=== PATIENT | male | born 1950 | race Caucasian/White ===

== ENCOUNTER 2024-12-04 16:47 | Observation (INO) | payer MEDICARE, OTHER, SELFPAY ==
[2024-12-04] VITALS (9 sets, daily range): BP systolic 149–199; BP diastolic 79–101; PULSE 63–72; RESP 14–18; TEMP 36.7–36.9; O2SAT 96–100; BMI 38.3; BMI 38.5; BMI 36.6
--- NOTE | 2024-12-04 17:11 | EX.ED.DYSGE1 ---
HPI History of Present Illness Chief Complaint: Neuro [facility] Medical History (Updated 12/04/24 @ 19:[address] Saran Bennett MD) GERD (gastroesophageal reflux disease) Non-smoker CPAP (continuous positive airway pressure) dependence Sleep apnea Prostate cancer Hypertension after donor nephrectomy requiring medication Home Medications ?Medication ?Instructions ?Recorded ?Last Taken ?Type losartan 100 mg tablet 100 mg PO DAILY blood pressure 12/04/24 12/04/24 History Allergy/AdvReac Type Severity Reaction Status Date / Time adhesive Allergy Mild Hives Verified 12/04/24 16:55 Surgical History (Updated 12/04/24 @ 19:35 by Michelle Aguilar) History of cholecystectomy H/O prostatectomy H/O shoulder surgery Social History Smoking Status: Never smoker EXAM Physical Exam Const Vital Signs: 12/04/24 16:48 12/04/24 17:48 12/04/24 18:00 Temperature 98.4 F Temperature Source Oral Pulse Rate 72 63 72 Respiratory Rate 15 14 17 Blood Pressure 184/91 H 199/89 H 192/97 H Blood Pressure Mean 122 125 128 Pulse Ox 98 97 97 Oxygen Delivery Method Room Air Room Air 12/04/24 19:00 12/04/24 19:19 Temperature 98.1 F Temperature Source Pulse Rate 63 63 Respiratory Rate 18 18 Blood Pressure 149/79 H 149/79 H Blood Pressure Mean 102 102 Pulse Ox 96 96 Oxygen Delivery Method Room Air MDM MDM MDM Narrative Medical decision making narrative: HISTORY OF PRESENT ILLNESS: 74-year-old male presents concern for slurred speech and right arm weakness. He notes this occurred at ~415pm on 12/04/2023. Last known well 415pm. He notes by the time he called EMS and they arrived at his home he was back to normal. He denies any symptoms now. He does note he got an accident on Wednesday and notes head trauma. Also complains of a headache. He further states REVIEW OF SYSTEMS: Pertinent positives: Slurred speech, right arm weakness, headache Pertinent negatives: Vomit PHYSICAL EXAM: Nursing triage notes reviewed, Vital signs reviewed Constitutional: please see mdm HENT: MMM Eyes: Pupils equal round and reactive to light, Extraocular muscles intact Neck: No stridor, no JVD, full neck ROM Lungs: Clear to auscultation, No wheezing or rales. No increased work of breathing, no conversational dyspnea, no accessory muscle use, no nasal flaring. No respiratory distress noted Heart: Regular rate and rhythm, No murmurs, No rubs and No gallops, 2+ distal pulses (radial, femoral, posterior tibial) in all extremities Abdomen: Soft, there is no tenderness, rigidity, rebound or guarding, no obvious peritoneal signs, no palpable pulsatile abdominal masses, no auscultated abdominal bruit : No CVAT Extremities: No edema Neuro: No new focal neurological deficits, neuroexam at baseline. Alert and orient x 3. Cranial nerves II through XII intact, 5/5 strength in all present extremities. Intact sensation to light touch in all present extremities, 2+ reflexes bilateral patella tendons. NIH of 0. Skin: No rash or lesions noted MEDICAL DECISION MAKING: Chief Complaint: Transient right arm weakness, slurred speech External records reviewed: Reviewed prior imaging studies Factors affecting care: elevated blood pressure Social determinants of health: none History obtained from others: none Consults: internal medicine MDM Narrative: The patient was initially hypertensive with blood pressure 184/91, otherwise afebrile and nontoxic-appearing. Initial neurologic exam [closed I considered the following differential diagnosis: Traumatic brain spontaneous ICH, mass, large vessel occlusion, CVA/TIA I obtained a broad lab and imaging workup to further elucidate the etiology of the patient's complaints ALL IMAGES (IF OBTAINED) HAVE BEEN PERSONALLY REVIEWED AND INTERPRETED BY MYSELF. CT scan of the head showed no evidence of intracranial hemorrhage, mass, CTA of the head neck showed carotid artery stenosis hemodynamically significant stenosis. Showed no evidence of large vessel occlusion. I have personally reviewed the patient's chest x-ray. Chest x-ray is unremarkable for pulmonary edema, pneumothorax, pneumonia or focal cardiopulmonary abnormality. High-sensitivity troponin is negative, no evidence of myocardial ischemia EKG with normal sinus rhythm, normal axis, normal intervals, no STEMI BMP without evidence of significant electrolyte abnormalities, no anion gap, no acute kidney injury. Given concern for TIA will admit for MRI. Discussed with hospitalist The patient and/or family, caregivers express understanding. The patient and/or family, caregivers agrees with the plan. Shared decision making: I will have a discussion with the patient and or visitors regarding risk/benefits of further testing or admission. They will be made aware of of the risk/benefits inherent in this decision they will be given the opportunity to voice understanding. Total critical care time today provided was at least 0 minutes. This excludes separately billable procedures. Critical care time (if documented) is secondary to the patient having high probability of clinically significant/life threatening deterioration in the patient's condition which required my urgent intervention. Impression: 1. TIA 2. History of hypertension 3. Elevated blood pressure Dispo: Admit This note was generated with [employer] dictation software. It may contain incorrect words, spelling, and punctuation that were not noted in review of the chart prior to signing. Lab Data Labs: Laboratory Results - last 24 hr 12/04/24 16:50 WBC 8.2 RBC 4.81 Hgb 14.6 Hct 41.8 MCV 86.9 MCH 30.4 MCHC 34.9 RDW Std Deviation 40.6 RDW Coeff of Zana 12.9 Plt Count 240 MPV 9.8 Immature Gran % (Auto) 0.400 Neut % (Auto) 60.8 Lymph % (Auto) 28.7 Luna % (Auto) 7.8 Eos % (Auto) 1.8 Baso % (Auto) 0.5 Absolute Neuts (auto) 5.0 Absolute Lymphs (auto) 2.36 Nucleated RBC % 0 PT 14.0 INR 1.1 Sodium 139 Potassium 4.1 Chloride 108 H Carbon Dioxide 24.0 Anion Gap 7 BUN 24 H Creatinine 1.12 Estim Creat Clear Calc 63.66 Est GFR (MDRD) Af Amer 82 Est GFR (MDRD) Non-Af 68 BUN/Creatinine Ratio 21.4 H Glucose 99 Calcium 9.0 Troponin I High Sens 17 Radiography Diagnostic Testing: Clinical Impression(s) from Imaging Studies Brain CT 12/04/24 17:39 IMPRESSION: Mild atrophy and periventricular white matter ischemic changes. No acute bleed.. If concern for acute infarct MRI recommended Electronically Signed: Jaspal Ferguson MD at 18:40 EST , Head/Neck CTA 12/04/24 17:39 IMPRESSION: Atherosclerotic changes of the brain without evidence for hemodynamically significant stenosis Moderate to severe atherosclerotic disease of the neck with hemodynamically significant stenosis of the left carotid bulb and origin of the right internal carotid Catheter angiography would be helpful for further evaluation and possibly therapeutic purposes clinically warranted Electronically Signed: Jaspal Ferguson MD at 18:50 EST Reading Location ID and State: [address] [place] [address] Tel [phone], Service support , Chest X-Ray 12/04/24 17:40 IMPRESSION: No acute cardiopulmonary pathology Electronically Signed: Jaspal Ferguson MD at 18:06 EST , Discharge Plan Disposition Disposition: Acute Care Hospital [facility] Discharge Date/Time: 12/04/24 20:11
--- NOTE | 2024-12-04 17:39 | EKG12_ITS ---
Test Reason : NEURO/SX Blood Pressure : */* mmHG Vent. Rate : 62 BPM Atrial Rate : 62 BPM P-R Int : 168 ms QRS Dur : 98 ms QT Int : 416 ms P-R-T Axes : 4 -1 27 degrees QTcB Int : 422 ms Normal sinus rhythm Incomplete right bundle branch block Minimal voltage criteria for LVH, may be normal variant ( R in aVL ) Borderline ECG Confirmed by WILTON MESA, ANGEL ([id number]), publication editor KINGSTON PETERS ([id number]) on 12/11/2024 2:24:35 PM Referred By: Confirmed By: ANGEL NÚÑEZ MD
--- NOTE | 2024-12-04 17:39 | CT_ITS ---
STUDY: CT BRAIN WITHOUT CONTRAST REASON FOR EXAM: Male, 74 years old. right arm weakness RADIATION DOSAGE (If Supplied By Facility): CTDIvol = ( 44.99 ) mGy, DLP = ( 829.85 ) mGycm TECHNIQUE: Transaxial CT imaging of the brain was performed without administration of intravenous contrast material. Individualized dose optimization techniques were used for this CT. COMPARISON: No relevant priors. FINDINGS: Normal soft tissue structures. Normal calvarium. Calcific plaquing of the cavernous carotids and vertebral arteries Mild atrophy and periventricular white matter ischemic changes. Normal basal ganglia and thalami. Normal brainstem. Normal cerebellum. There is no intracranial hemorrhage. There are no findings of an acute ischemic infarction. Normal visualized paranasal sinuses. CT/Brain/Head without Contrast IMPRESSION: Mild atrophy and periventricular white matter ischemic changes. No acute bleed.. If concern for acute infarct MRI recommended Electronically Signed: Jaspal Ferguson MD at 18:40 EST ,
--- NOTE | 2024-12-04 17:39 | CT_ITS ---
STUDY: CTA HEAD AND NECK WITH CONTRAST REASON FOR EXAM: Male, 74 years old. right arm weakness RADIATION DOSAGE (If Supplied By Facility): CTDIvol = ( 23.77 ) mGy, DLP = ( 709.25 ) mGycm TECHNIQUE: CT angiography was performed with a multi-detector CT scanner. Data acquisition was obtained from the skull base through the vertex following intravenous administration of IV 100mL [id number]-300. MIP images were reconstructed from the axial data set. Post-processing of the angiographic images was performed, with multiplanar reformation and 3D reconstruction. Individualized dose optimization techniques were used for this CT. COMPARISON: No relevant priors. FINDINGS: Normal bilateral petrous carotid arteries. Calcific plaquing of the right cavernous carotid artery with a normal supraclinoid bifurcation. Calcific plaquing of the left cavernous carotid artery with a normal supraclinoid bifurcation. Normal right A1 segments of the anterior cerebral artery. Normal left A1 segments of the anterior cerebral artery. Normal intact anterior communicating artery (ACOM). Normal bilateral A2 segments of the anterior cerebral arteries. Normal right M1 and M2 segments of the middle cerebral arteries, with a normal M1 bifurcation. Normal left M1 and M2 segments of the middle cerebral arteries, with a normal M1 bifurcation. Right posterior communicating artery not visualized consistent with normal variant). Normal left posterior communicating artery (PCOM). Narrowed calcified distal left vertebral. Right vertebral terminating in PICA. Normal basilar artery with a normal basilar bifurcation. The visualized bilateral superior cerebellar (SCA) arteries are normal. Normal bilateral P1, P2 and visualized P3 segments of the posterior cerebral arteries. There is no demonstrated aneurysm of the [place]. AORTIC ARCH: Normal visualized aortic arch. Normal origins of the brachiocephalic, left common carotid, and left subclavian arteries. RIGHT CAROTID ARTERIES: Mild calcific plaquing of the right common carotid artery (CCA). Moderate calcific plaquing of the right common carotid bulb. Severe calcific plaquing of the origin of the right internal carotid (ICA) artery producing hemodynamically significant stenosis. Normal visualized cervical portion of the right internal carotid artery. Normal origin of the right external carotid artery (ECA). LEFT CAROTID ARTERIES: Moderate soft and calcific plaquing of the left common carotid artery (CCA). Severe calcific plaquing of the left common carotid bulb creating hemodynamically significant stenosis. Moderate calcific plaquing of the origin of the left internal carotid (ICA) artery without a hemodynamically significant stenosis. Normal visualized cervical portion of the left internal carotid artery. Normal origin of the left external carotid artery (ECA). 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
--- NOTE | 2024-12-04 17:40 | RAD_ITS ---
STUDY: X-RAY CHEST REASON FOR EXAM: Male, 74 years old. right arm weakness TECHNIQUE: AP portable COMPARISON: None. FINDINGS: There is minimal bibasilar scarring.. There is no demonstrated pleural abnormality. Normal size heart. Normal mediastinum and rivera. Normal visualized pulmonary arteries. Mildly calcified aortic arch and descending thoracic aorta. Dorsal spine demonstrates mild degenerative change. Normal visualized ribs, clavicles, and shoulders. There is no demonstrated abnormality of the visualized soft tissue structures of the upper abdomen. RAD/Chest 1 View (Portable) IMPRESSION: No acute cardiopulmonary pathology Electronically Signed: Jaspal Ferguson MD at 18:06 EST ,
[2024-12-04 17:57] LABS: Absolute Lymphocyte Count 2.36 X10^3/uL (0.83-4.51); Basophil# 0.04 X10^3/uL; Basophil% 0.5 % (0-1); Eosinophil# 0.15 X10^3/uL; Eosinophils% 1.8 % (0-5); Hematocrit 41.8 % (40-54); Hemoglobin 14.6 g/dL (13.0-16.5); Lymphocyte # 2.36 X10^3/ul (0.83-4.51); Lymphocyte % 28.7 % (19-41); Mean Corp Hgb Conc 34.9 g/dL (32-36); Mean Corpuscular Hgb 30.4 pg (27.0-32.0); Mean Corpuscular Volume 86.9 fL (80-94); Mean Platelet Vol. 9.8 fl (6.2-12.0); Monocyte# 0.64 X10^3/uL; Monocyte% 7.8 % (0-10); NRBC Flagged by Analyzer 0 % (0-5); Neutrophil # 4.99 X10^3/uL (2.7-7.7); Neutrophil % 60.8 % (47-70); Platelet Count 240 K/mm3 (150-450); RBC Distribution Width CV 12.9 % (11.6-14.6); RBC Distribution Width SD 40.6 fl (35.1-43.9); Red Blood Count 4.81 M/mm3 (4.6-6.2); White Blood Count 8.2 K/mm3 (4.4-11.0)
[2024-12-04 18:04] LABS: Anion Gap 7 (5-15); BUN 24 mg/dL (7-18); BUN/Creat Ratio 21.4 RATIO (10-20); Chloride 108 mmol/L (98-107); Creatinine, Serum 1.12 mg/dL (0.70-1.30); EST Glomerular Filtration Rate 68 mL/min (>60); Est Glom Filt Rate - Afr Amer 82 mL/min (>60); Estimated Creatinine Clearance 63.66 ml/min; Glucose 99 mg/dL (74-106); Potassium 4.1 mmol/L (3.5-5.1); Sodium Level 139 mmol/L (136-145); Troponin-I HS 17 pg/mL (3.0-78.0)
[2024-12-04 18:07] LABS: International Normalized Ratio 1.1
--- NOTE | 2024-12-04 19:41 | HP.PCM_ITS ---
HPI - General General Date of Admission: 12/04/24 Date of Service: 12/04/24 Chief Complaint: Right arm weakness, slurred speech HPI Narrative AKUA TANG, is a 74 M who presents to the emergency room by squad due to sudden right arm weakness and slurred speech resulting in fall at 415 this afternoon. [facility] and he was indoors when this occurred and was witnessed. By the time ambulance had arrived symptoms had completely resolved. Upon arrival to the emergency room patient's NIH score was 0. Patient denies any chest pain, shortness of breath, fevers or chills, nausea vomiting or diarrhea. He does have some headache presumably from falling. CT scan is negative for acute findings ,however, CT angiogram showed positive vascular disease. Laboratory studies are unremarkable. Patient will be admitted for observation and MRI/MRA in the a.m. [facility] Medical History (Updated 12/04/24 @ 19:[address] Saran Bennett MD) GERD (gastroesophageal reflux disease) Non-smoker CPAP (continuous positive airway pressure) dependence Sleep apnea Prostate cancer Hypertension after donor nephrectomy requiring medication Home Medications ?Medication ?Instructions ?Recorded ?Last Taken ?Type losartan 100 mg tablet 100 mg PO DAILY 12/04/24 Unknown History Allergy/AdvReac Type Severity Reaction Status Date / Time adhesive Allergy Mild Hives Verified 12/04/24 16:55 Surgical History (Updated 12/04/24 @ 19:35 by Michelle Aguilar) History of cholecystectomy H/O prostatectomy H/O shoulder surgery Social History Smoking Status: Never smoker ROS Constitutional Constitutional: Denies chills or fever(s) Eyes Eyes: Denies blurry vision ENT HEENT: Denies abnormal hearing Cardiovascular Cardiovascular: Denies chest pain Respiratory/Chest Respiratory/Chest: Denies cough or shortness of breath at rest Gastrointestinal Gastrointestinal: Denies abdominal pain Genitourinary Genitourinary: Denies dysuria Integumentary Integumentary: Denies dry skin Neurologic Neurologic: Reports abnormal speech and focal weakness Psychiatric Psychiatric: Denies anxiety Endocrine Endocrinology: Denies change in body appearance Vital Signs Vital Signs Vital Signs: 12/04/24 16:48 12/04/24 17:48 12/04/24 18:00 Temperature 98.4 F Temperature Source Oral Pulse Rate 72 63 72 Respiratory Rate 15 14 17 Blood Pressure 184/91 H 199/89 H 192/97 H Blood Pressure Mean 122 125 128 Pulse Ox 98 97 97 Oxygen Delivery Method Room Air Room Air 12/04/24 19:00 12/04/24 19:19 Temperature 98.1 F Temperature Source Pulse Rate 63 63 Respiratory Rate 18 18 Blood Pressure 149/79 H 149/79 H Blood Pressure Mean 102 102 Pulse Ox 96 96 Oxygen Delivery Method Room Air Weight Weight: 231 lb 14.821 oz Body Mass Index (BMI) 38.5 Physical Exam Const alert, oriented x3, no apparent distress and well nourished General Appearance: cooperative and well developed HEENT normocephalic and head/scalp atraumatic Eyes PERRL and EOMs intact bilaterally Neck no lymphadenopathy Lymph Lymphatic: no lymphadenopathy noted Resp normal respiratory effort, normal air movement and clear to auscultation bilaterally Cardio regular rate, regular rhythm, S1 normal heart sound, S2 normal heart sound and no murmurs GI normal to inspection, nondistended, normoactive bowel sounds Extremity normal capillary refill Skin General Skin Exam: no breakdown Neuro CN's II-XII intact bilaterally Coordination / Balance: [id number] test normal and [id number] test normal Speech: speech normal Motor Exam: strength 5/5 throughout Psych thought process normal, cooperative and affect normal Appearance: appropriate Results Lab / Micro Data 12/04/24 16:50 12/04/24 16:50 Labs: Laboratory Results - last 24 hr 12/04/24 16:50: WBC 8.2, RBC 4.81, Hgb 14.6, Hct 41.8, MCV 86.9, MCH 30.4, MCHC 34.9, RDW Std Deviation 40.6, RDW Coeff of Zana 12.9, Plt Count 240, MPV 9.8, Immature Gran % (Auto) 0.400, Neut % (Auto) 60.8, Lymph % (Auto) 28.7, [place] % (Auto) 7.8, Eos % (Auto) 1.8, Baso % (Auto) 0.5, Absolute Neuts (auto) 5.0, Absolute Lymphs (auto) 2.36, Nucleated RBC % 0, PT 14.0, INR 1.1, Sodium 139, Potassium 4.1, Chloride 108 H, Carbon Dioxide 24.0, Anion Gap 7, BUN 24 H, Creatinine 1.12, Estim Creat Clear Calc 63.66, Est GFR (MDRD) Af Amer 82, Est GFR (MDRD) Non-Af 68, BUN/Creatinine Ratio 21.4 H, Glucose 99, Calcium 9.0, Troponin I High Sens 17 Imaging Radiology Impression Brain CT 12/04/24 17:39 IMPRESSION: Mild atrophy and periventricular white matter ischemic changes. No acute bleed.. If concern for acute infarct MRI recommended Electronically Signed: Jaspal Ferguson MD at 18:40 EST , Head/Neck CTA 12/04/24 17:39 IMPRESSION: Atherosclerotic changes of the brain without evidence for hemodynamically significant stenosis Moderate to severe atherosclerotic disease of the neck with hemodynamically significant stenosis of the left carotid bulb and origin of the right internal carotid Catheter angiography would be helpful for further evaluation and possibly therapeutic purposes clinically warranted Electronically Signed: Jaspal Ferguson MD at 18:50 EST , Chest X-Ray 12/04/24 17:40 IMPRESSION: No acute cardiopulmonary pathology Electronically Signed: Jaspal Ferguson MD at 18:06 EST , Assessment & Plan Assessment/Plan (1) TIA (transient ischemic attack): (2) GERD (gastroesophageal reflux disease): (3) Sleep apnea: (4) Hypertension after donor nephrectomy requiring medication: PLAN: Plan 1 transient ischemic attack?patient will be admitted for observation to progressive care unit, neurologic assessments every 4 hours per routine protocol will add aspirin daily and will order an MRI MRA of the brain and neck in a.m. Will also get CBC, CMP and FLP in the morning. 2. GERD continue oral medication 3. Sleep apnea?recommend continued use of CPAP machine 4. Hypertension will continue routine home medications 5. DVT prophylaxis?low molecular weight heparin Charges/Coding Visit Charges OBSV E&M: 69148 Observ/hosp same date L2
[2024-12-05 01:50] VITALS: BP 141/76; PULSE 54; RESP 14; TEMP 36.5; O2SAT 97
[2024-12-05] MEDS: 0.9% Saline Lock 10 ML Syringe IV (01:56)
[2024-12-05 04:04] VITALS: BMI 36.6
--- NOTE | 2024-12-05 05:55 | MRI_ITS ---
HISTORY: Transient ischemic attack, right sided weakness, slurred speech now resolved. TECHNIQUE: Multiplanar and multisequence MR images of the brain were obtained without contrast. 294 images. COMPARISON: CT prior day. FINDINGS: BRAIN PARENCHYMA: Mild foci of increased T2 FLAIR signal in the bilateral cerebral white matter. No abnormal focus of restricted diffusion. No acute intracranial hemorrhage identified. CSF SPACES: Mild volume loss. No significant midline shift or other mass effect.No extra-axial fluid collection. VASCULAR SYSTEM: Major intracranial flow voids are maintained. PARANASAL SINUSES AND MASTOID AIR CELLS: No significant air fluid levels. ORBITS: Symmetric contents. MRI/Brain without Contrast IMPRESSION: No evidence for acute infarct. Mild chronic involutional and white matter changes. Electronically Signed: Tiffanie Carlton MD at 11:12 EST ,
[2024-12-05 06:00] VITALS: BP 144/74; PULSE 54; RESP 16; TEMP 36.4; O2SAT 97
[2024-12-05 06:41] LABS: Absolute Lymphocyte Count 1.56 X10^3/uL (0.83-4.51); Absolute Neutrophil Count 4.1 X10^3/uL (2.0-7.7); Basophil# 0.03 X10^3/uL; Basophil% 0.5 % (0-1); Eosinophils% 3.1 % (0-5); Hematocrit 42.9 % (40-54); Hemoglobin 14.4 g/dL (13.0-16.5); Lymphocyte # 1.56 X10^3/ul (0.83-4.51); Lymphocyte % 23.9 % (19-41); Mean Corp Hgb Conc 33.6 g/dL (32-36); Mean Corpuscular Hgb 29.4 pg (27.0-32.0); Mean Corpuscular Volume 87.7 fL (80-94); Mean Platelet Vol. 9.5 fl (6.2-12.0); Monocyte# 0.66 X10^3/uL; Monocyte% 10.1 % (0-10); NRBC Flagged by Analyzer 0 % (0-5); Neutrophil # 4.05 X10^3/uL (2.7-7.7); Neutrophil % 62.1 % (47-70); Platelet Count 247 K/mm3 (150-450); RBC Distribution Width CV 13.1 % (11.6-14.6); Red Blood Count 4.89 M/mm3 (4.6-6.2); White Blood Count 6.5 K/mm3 (4.4-11.0)
[2024-12-05 06:52] LABS: ALB/GLOB Ratio 1.2 RATIO (0.9-2.4); AST(SGOT) 13 U/L (15-37); Alanine Aminotransfer ALT/SGPT 24 U/L (16-61); Albumin, Serum 3.7 g/dL (3.2-5.0); Alkaline Phosphatase 67 U/L (45-117); Anion Gap 6 (5-15); BUN 19 mg/dL (7-18); BUN/Creat Ratio 19.2 RATIO (10-20); Calcium,Total 8.7 mg/dL (8.5-10.1); Chloride 108 mmol/L (98-107); Cholesterol 151 mg/dL (200); Creatinine, Serum 0.99 mg/dL (0.70-1.30); EST Glomerular Filtration Rate 78 mL/min (>60); Est Glom Filt Rate - Afr Amer 95 mL/min (>60); Estimated Creatinine Clearance 70.12 ml/min; Globulin 3.2 g/dL (2.2-4.2); Glucose 110 mg/dL (74-106); High Density Lipoprotein 40 mg/dL; Potassium 4.3 mmol/L (3.5-5.1); Protein, Total 6.9 g/dL (6.4-8.2); Sodium Level 138 mmol/L (136-145); Triglycerides 115 mg/dL; Very Low Density Lipoprotein 23 mg/dL (5-40)
[2024-12-05 06:59] VITALS: O2SAT 96
--- NOTE | 2024-12-05 07:53 | PCM.PN.HOSP ---
Reason for Visit Reason for Visit: Diagnoses Transient cerebral ischemic attack, unspecified (12/04/24) Sleep apnea, unspecified (12/04/24) Postprocedural hypertension (12/04/24) Gastro-esophageal reflux disease without esophagitis (12/04/24) Acquired absence of kidney (12/04/24) Objective Data Objective Data Vital Signs: Vital Signs Temp Pulse Resp BP Pulse Ox O2 Del Method 97.6 F L 54 L 16 144/74 H 97 Room Air 12/05/24 06:00 12/05/24 06:00 12/05/24 06:00 12/05/24 06:00 12/05/24 06:00 12/05/24 06:00 Oxygen Delivery Method Room Air Weight: 220 lb 7.396 oz Body Mass Index (BMI) 36.6 Intake & Output: Intake and Output for Last 24 Hours 12/03/24 12/04/24 12/05/24 23:59 23:59 23:59 Intake Total 0 / 0 Balance 0 / 0 Lab / Micro Data 12/05/24 05:52 12/05/24 05:52 Labs: Laboratory Results - last 24 hr 12/04/24 16:50: WBC 8.2, RBC 4.81, Hgb 14.6, Hct 41.8, MCV 86.9, MCH 30.4, MCHC 34.9, RDW Std Deviation 40.6, RDW Coeff of Zana 12.9, Plt Count 240, MPV 9.8, Immature Gran % (Auto) 0.400, Neut % (Auto) 60.8, Lymph % (Auto) 28.7, [place] % (Auto) 7.8, Eos % (Auto) 1.8, Baso % (Auto) 0.5, Absolute Neuts (auto) 5.0, Absolute Lymphs (auto) 2.36, Nucleated RBC % 0, PT 14.0, INR 1.1, Sodium 139, Potassium 4.1, Chloride 108 H, Carbon Dioxide 24.0, Anion Gap 7, BUN 24 H, Creatinine 1.12, Estim Creat Clear Calc 63.66, Est GFR (MDRD) Af Amer 82, Est GFR (MDRD) Non-Af 68, BUN/Creatinine Ratio 21.4 H, Glucose 99, Calcium 9.0, Troponin I High Sens 17 12/05/24 05:52: WBC 6.5, RBC 4.89, Hgb 14.4, Hct 42.9, MCV 87.7, MCH 29.4, MCHC 33.6, RDW Std Deviation 42.0, RDW Coeff of Zana 13.1, Plt Count 247, MPV 9.5, Immature Gran % (Auto) 0.300, Neut % (Auto) 62.1, Lymph % (Auto) 23.9, [place] % (Auto) 10.1 H, Eos % (Auto) 3.1, Baso % (Auto) 0.5, Absolute Neuts (auto) 4.1, Absolute Lymphs (auto) 1.56, Nucleated RBC % 0, Sodium 138, Potassium 4.3, Chloride 108 H, Carbon Dioxide 24.0, Anion Gap 6, BUN 19 H, Creatinine 0.99, Estim Creat Clear Calc 70.12, Est GFR (MDRD) Af Amer 95, Est GFR (MDRD) Non-Af 78, BUN/Creatinine Ratio 19.2, Glucose 110 H, Calcium 8.7, Total Bilirubin 0.90, AST 13 L, ALT 24, Alkaline Phosphatase 67, Total Protein 6.9, Albumin 3.7, Globulin 3.2, Albumin/Globulin Ratio 1.2, Triglycerides 115, Cholesterol 151, LDL Cholesterol 88, VLDL Cholesterol 23, HDL Cholesterol 40 Radiography Diagnostic Testing: Radiology Impression Brain CT 12/04/24 17:39 IMPRESSION: Mild atrophy and periventricular white matter ischemic changes. No acute bleed.. If concern for acute infarct MRI recommended Electronically Signed: Jaspal Ferguson MD at 18:40 EST , Head/Neck CTA 12/04/24 17:39 IMPRESSION: Atherosclerotic changes of the brain without evidence for hemodynamically significant stenosis Moderate to severe atherosclerotic disease of the neck with hemodynamically significant stenosis of the left carotid bulb and origin of the right internal carotid Catheter angiography would be helpful for further evaluation and possibly therapeutic purposes clinically warranted Electronically Signed: Jaspal Ferguson MD at 18:50 EST , Chest X-Ray 12/04/24 17:40 IMPRESSION: No acute cardiopulmonary pathology Electronically Signed: Jaspal Ferguson MD at 18:06 EST Reading Location ID and State: [facility] / [place] Tel , Service support , Assessment & Plan Assessment/Plan (1) TIA (transient ischemic attack): (2) GERD (gastroesophageal reflux disease): (3) Sleep apnea: (4) Hypertension after donor nephrectomy requiring medication: PLAN: Plan EMS squad was called for slurred speech and right arm weakness, LKW 4:15 PM on 12/04/2023. By the arrival of the squad, symptoms have resolved. Patient also has an accident on Wednesday and hit his head. Complain of headache 1 transient ischemic attack?patient will be admitted for observation to progressive care unit, neurologic assessments every 4 hours per routine protocol will add aspirin daily and will order an MRI MRA of the brain and neck in a.m. Will also get CBC, CMP and FLP in the morning. 2. GERD continue oral medication 3. Sleep apnea?recommend continued use of CPAP machine 4. Hypertension will continue routine home medications 5. DVT prophylaxis?low molecular weight heparin
[2024-12-05 08:05] VITALS: BP 142/76; PULSE 58; RESP 16; TEMP 36.4; O2SAT 98
[2024-12-05] MEDS: Enoxaparin 40 MG/0.4 ML Syringe SC (08:11)
[2024-12-05] MEDS: Aspirin 81 MG TAB.CHEW PO (08:11)
--- NOTE | 2024-12-05 10:35 | DCINST_ITS ---
Discharge Instructions Diet Discharge Diet: No restrictions DC O2, CPAP, BIPAP needs Home O2 Discharge instructions: No Dressing / Incision Discharge Activity: Return to Normal Activity Weight Bearing Status: Weight bearing as tolerated Dressing / Incision Call your doctor if you observe: Fever of 101 or Higher, Coldness, Increased Pain, Numbness or Tingling, Change in Color, Inability to urinate, Inability to have a bowel movement, Shortness of breath, Dizziness, Fainting spells, Swelling in the ankles, Chest pain, Prolonged hiccupping, Increased palpitations (irregular heartbeat) and Calf discomfort Follow Up Care When: IN 2 WEEKS Test Results: Test results from this visit will be discussed in further detail at your follow- up appointment, if applicable. Discharge Plan Admission Admit Date/Time: 12/04/24 19:47 Attending Provider: Jensen Riggins Primary Care Provider: Kartik Vargas Consulting Providers: Saran Bennett; Fox Shah Discharge Orders/Prescriptions Prescriptions: New aspirin 81 mg Tablet,Chewable 81 mg PO BREAKFAST 30 Days Qty: 30 3RF atorvastatin 40 mg tablet 40 mg PO QHS 30 Days Qty: 30 2RF Continued losartan 100 mg tablet 100 mg PO DAILY Referrals / Follow Up: Fox Shah MD [Med Staff - Active Staff] - Within 2 Weeks (Bilateral carotid bulb hemodynamically significant stenosis an bilateral ICA origin) Kartik Vargas MD [Primary Care Provider] - Gil Ashley MD [Non-Staff -Ordering Privileges] - Within 1 Month (Follow-up for TIA) Disposition Disposition (needs filled in before D/C Order can be placed): Home, Self Care
[2024-12-05 11:34] VITALS: BMI 36.6
--- NOTE | 2024-12-05 11:52 | ECHOD_ITS ---
Reason For Study: TIA/CVA Procedure This was a 2D Doppler, Color Flow transthoracic echocardiogram. Exam performed portable in patient room. Left Ventricle Normal LV size. The estimated ejection fraction is 60 %. No evidence for diastolic dysfunction. No regional wall motion abnormalities noted. Right Ventricle Normal RV size. Normal systolic function. Atria The left and right atria are normal. Bubble contrast study is positive for PFO. Mitral Valve There is no mitral valve stenosis. No mitral valve insufficiency. Tricuspid Valve There is no tricuspid stenosis. No tricuspid valve insufficiency. Aortic Valve Trisinus/trileaflet aortic valve. There is no aortic stenosis. No aortic valve insufficiency. Pulmonic Valve There is no pulmonic valvular stenosis. Trivial pulmonic valve insufficiency. Great Vessels Normal aortic root. Pericardium/Pleural No pericardial effusion. Medication Performed a rapid injection of agitated mix of 9 cc saline and 1cc air to assess for atrial septal defect. MMode/2D Measurements & Calculations LVIDd: 4.5 cm IVSd: 1.1 cm asc Aorta Diam: 3.8 cm LVIDs: 2.8 cm LVPWd: 1.1 cm RVDd: 4.6 cm FS: 38.1 % LAV(MOD-bp): 70.5 ml LVAd ap4: 26.1 cm2 SV(MOD-sp4): 44.3 ml LAV(MOD-bp) Indexed: 34.2 ml/m2 LVLd ap4: 8.2 cm SI(MOD-sp4): 21.5 ml/m2 LAV(MOD-sp2): 67.8 ml EDV(MOD-sp4): 67.6 ml LAV(MOD-sp4): 71.2 ml EDV(sp4-el): 70.3 ml LVAs ap4: 13.7 cm2 LVLs ap4: 7.0 cm ESV(MOD-sp4): 23.3 ml ESV(sp4-el): 22.9 ml EF(MOD-sp4): 65.5 % EF(sp4-el): 67.5 % SV(sp4-el): 47.5 ml LA A4 area: 23.3 cm2 LA dimension(2D): 4.6 cm RA A4 area: 12.6 cm2 TAPSE: 2.4 cm Time Measurements MV dec time: 0.33 sec Doppler Measurements & Calculations MV E max pernell: 62.5 cm/sec Lat Peak E' Pernell: 6.4 cm/sec Med Peak E' Pernell: 5.2 cm/sec MV A max pernell: 95.9 cm/sec E/E' lat: 9.8 E/E' med: 11.9 MV E/A: 0.65 MV dec slope: 191.0 cm/sec2 Ao V2 max: 147.1 cm/sec LV V1 max: 113.1 cm/sec Ao max P.7 mmHg LV V1 max P.1 mmHg Ao V2 mean: 96.9 cm/sec LV V1 mean P.7 mmHg Ao mean P.3 mmHg LV V1 mean: 75.7 cm/sec Ao V2 VTI: 32.1 cm LV V1 VTI: 27.4 cm AV (velocity ratio): 0.85 PA V2 max: 101.3 cm/sec PI end-d pernell: 64.6 cm/sec TR max pernell: 222.9 cm/sec TR max P.9 mmHg ECHO/Echo Complete Interpretation Summary The estimated ejection fraction is 60 %. No evidence for diastolic dysfunction. Ordering Physician: Jensen Riggins Referring Physician: Kartik Vargas Performed By: Caitlin Navarro RDCS, RVT
[2024-12-05 12:46] VITALS: BP 126/79; PULSE 69; RESP 16; TEMP 36.6; O2SAT 96
[2024-12-05] MEDS: Losartan Potassium 100 MG Tablet PO (12:49)
--- NOTE | 2024-12-05 13:50 | CDU_ITS ---
Reason For Study: TIA Rt. Velocities/BP Lt. Velocities/BP Prox CCA 108.9/19.4 cm/sec. Prox CCA 103.4/23.0 cm/sec. Mid CCA 91.1/18.1 cm/sec. Mid CCA 108.9/17.5 cm/sec. Dist CCA 121.6/21.2 cm/sec. Dist CCA 86.9/15.7 cm/sec. Prox ICA 83.3/17.5 cm/sec. Prox ICA 108.9/19.4 cm/sec. Mid ICA 112.5/26.7 cm/sec. Mid ICA 101.0/21.2 cm/sec. Dist ICA 103.4/34.0 cm/sec. Dist ICA 76.9/20.4 cm/sec. Rt. ICA/CCA = 1.2. Lt. ICA/CCA = 0.9. Prox ECA 144.8/15.2 cm/sec. Prox ECA 191.1/17.2 cm/sec. Rt. Vert. 43.1/8.1 cm/sec. Lt. Vert. 69.5/16.7 cm/sec. Right Extracranial There is homogeneous, smooth atherosclerotic plaque noted in the right common carotid artery. There is heterogeneous, irregular atherosclerotic plaque noted in the right internal carotid artery. There is intimal thickening but no significant atherosclerotic plaque noted in the right external carotid artery. Antegrade flow is noted in the right vertebral artery. Left Extracranial There is heterogeneous, smooth atherosclerotic plaque noted in the left common carotid artery. There is heterogeneous, irregular atherosclerotic plaque noted in the left internal carotid artery. There is heterogeneous, smooth atherosclerotic plaque noted in the left external carotid artery. Antegrade flow is noted in the left vertebral artery. There is heterogeneous, irregular atherosclerotic plaque noted in the left bulb. Procedure Carotid Duplex 19773. This is a Carotid Duplex examination using B-mode, color flow and specral Doppler. The exam was diagnostic. Exam performed in department. VL/Carotid Duplex Ultrasound Interpretation Summary Mild (<50%) stenosis right extracranial internal carotid. Mild (<50%) stenosis left extracranial internal carotid. Patent and antegrade vertebrals bilaterally. Ordering Physician: Rosa Champagne Referring Physician: Kartik Vargas Performed By: Piter Downing RVT
--- NOTE | 2024-12-05 14:04 | CASEMGMT ---
SW did not complete a PHQ 9 as patient did not have a Stroke. Rosalba GOVEA
--- NOTE | 2024-12-05 14:17 | PHA.DC.MC.R ---
Pharmacy [facility] has performed discharge medication reconciliation and counseling for this patient. Patient would like meds to beds, called retail and requested delivery. Does not need aspirin filled. Says he has some at home but was not taking. 1. ASPIRIN 81MG PO BREAKFAST 2. ATORVASTATIN 40MG PO QHS The patient's discharge medication list was reviewed for discrepancies and discrepancies were resolved. The patient was counseled on the following discharge medications and changes in medications for homegoing were reviewed. The Reason for Use, instructions for use, and potential side effects were reviewed for all new medications. The patient's questions regarding all of their medications were answered. The patient was able to verbally demonstrate an understanding of their discharge medications. Medications at Discharge Home Medications losartan 100 mg tablet 100 mg PO DAILY blood pressure 12/04/24 aspirin 81 mg chewable tablet 81 mg PO BREAKFAST 1 month #30 tabs 12/05/24 atorvastatin 40 mg tablet 40 mg PO QHS 1 month #30 tabs 12/05/24
--- NOTE | 2024-12-05 14:50 | CASEMGMT ---
Patient has order for discharge. RN CM in to discuss needs at discharge. Patient up independent with therapy. Patient denies needs or help at discharge. Patient had no further questions or concerns.
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
[2024-12-05 15:41] LABS: Hemoglobin A1c 5.9 % (3.8-5.6)
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
[2024-12-05 16:01] VITALS: BP 141/87; PULSE 68; RESP 16; TEMP 36.6; O2SAT 98
--- NOTE | 2024-12-05 16:04 | CHAPLAIN ---
Type of Pastoral Visit _x__ Initial Visit ___ Follow-up Visit ___ On-call Visit ___ General Patient Visit ___ Spiritual Assessment ___ Family Conference ___ Bereavement ___ Rapid Response ___ Code Blue ___ Other (describe below) Pastoral Care Referral From _x__ Patient ___ Family ___ Nurse ___ Physician ___ Circuit Breaker Mechanic ___ Transfer Worker ___ Other (describe below) Sacrament/Intervention _x__ Active listening ___ Anointing ___ Shinto ___ Bereavement ___ Communion ___ [place] exploration ___ ___ Life review ___ Prayer ___ Reconciliation ___ Sacrament of Sick ___ Supportive presence ___ Wedding ___ Other (describe below) Pastoral Comments patient is resting in bed and daughter is with him; pt says that he should be discharged soon but is waiting for final report of the doctor; pt reviews some of his recent health challenges; pt admits some concern about what his issues might be but denies further needs
== END 2024-12-05 16:40 | disposition home or self-care (01) ==
LOC: ED 17:34 → PCU 22:13
PROVIDERS: Admitting Provider Family Medicine; Emergency Provider Emergency Medicine; PCP Family Medicine; Visit Provider Internal Medicine
DX: G45.9 Transient cerebral ischemic attack, unspecified (principal); G47.30 Sleep apnea, unspecified; R51.9 Headache, unspecified; R29.898 Other symptoms and signs involving the musculoskeletal system; R47.81 Slurred speech; K21.9 Gastro-esophageal reflux disease without esophagitis; I97.3 Postprocedural hypertension; Z79.899 Other long term (current) drug therapy; Z90.5 Acquired absence of kidney; R47.1 Dysarthria and anarthria
CPT/HCPCS: 36415; 70450; 70496; 70498; 70551; 71045; 80048; 80053; 80061; 83036; 84443; 84484; 85025; 85610; 93005; 93306; 93880; 94762; 96372; 97162; 99221; 99285; Q9967; A4216; G0378

== ENCOUNTER → 2025-07-19 | Outpatient (CLI) | payer MEDICARE, OTHER, SELFPAY | END | disposition home or self-care (01) | LOC: MTLAB 15:14 | PROVIDERS: PCP Family Medicine | DX: R41.89 Other symptoms and signs involving cognitive functions and awareness (principal) | CPT/HCPCS: 36415; 81401 ==